=== PATIENT | female | born 1980 | race Caucasian/White ===

== ENCOUNTER 2017-10-12 15:47 | Emergency (ER) | payer BC ==
[2017-10-12] MEDS ORDERED: predniSONE 10 MG Tab PO ONE (15:48)
[2017-10-12] MEDS ORDERED: Ketorolac 60 MG/2 ML SDV IM STA (15:59)
[2017-10-12] MEDS ORDERED: HYDROmorphone 2 MG/ML SDV IM ONE (16:41)
[2017-10-12] MEDS ORDERED: methylPREDNISolone Sodium Succinate 125 MG/2 ML SDV IM ONE (17:31)
--- NOTE | 2017-10-12 17:55 | EDM.PDOC ---
ED HPI GENERAL MEDICAL PROBLEM - General Chief Complaint: Upper Extremity Injury/Pain Stated Complaint: PAIN Time Seen by Provider: 10/12/17 16:30 Source of Information: Reports: Patient, Family History Limitations: Reports: No Limitations - History of Present Illness INITIAL COMMENTS - FREE TEXT/NARRATIVE: 36 y.o.w.f with chronic upper back pain, came to the ed due to sever mid upper back pain. Any kind of movement makes the pain worse. Pt denied direct trauma. She was on steroids for 2 weeks and was taken off those meds 3 days ago after which the pain started again. She has a CT of her upper spine done at [facility] which showed "spurs'. Pt denies a h/o DM. Moving her right shoulder makes her mid upper back pain worse. She was asked to wear an armsling. However, it does not help. Pt is scheduled to see a neurosurgeon on October 17 in [place]. No N/V/ D or any other acute medical issues. Pt is able to ambulate. Currenly, she is on Gabapentin and NSIDS. BP 146/67 Pulse 78 RR 20 Pulse 106 Temp 36.6 Onset Date: 10/10/17 Onset Time: 07:00 Duration: Day(s):, Getting Worse, Intermittent Location: Reports: Back (upper) Quality: Reports: Ache, Dull, Pressure, Same as Previous Episode Severity: Moderate Improves with: Reports: Rest Worsens with: Reports: Movement Context: Reports: Other (chronic, worse today) Associated Symptoms: Reports: No Other Symptoms - Related Data Allergies Allergy/AdvReac Type Severity Reaction Status Date / Time morphine Allergy Vomiting Verified 10/12/17 16:05 Home Meds: Home Meds Diclofenac Sodium [Voltaren] 75 mg PO BID 10/12/17 [History] Gabapentin [Neurontin] 600 mg PO TID 10/12/17 [History] Levothyroxine Sodium [Levothyroxine Sodium] 88 mcg PO DAILY 10/12/17 [History] Social & Family History - Tobacco Use Smoking Status *Q: Never Smoker - Caffeine Use Caffeine Use: Reports: Soda - Recreational Drug Use Recreational Drug Use: No Review of Systems - Review of Systems Review Of Systems: See Below Constitutional: Reports: No Symptoms Eyes: Reports: No Symptoms Ears: Reports: No Symptoms Nose: Reports: No Symptoms Mouth/Throat: Reports: No Symptoms Respiratory: Reports: No Symptoms Cardiovascular: Reports: No Symptoms GI/Abdominal: Reports: No Symptoms Genitourinary: Reports: No Symptoms Musculoskeletal: Reports: Back Pain, Muscle Pain Skin: Reports: No Symptoms Neurological: Reports: No Symptoms Psychiatric: Reports: No Symptoms ED EXAM, GENERAL - Physical Exam Exam: See Below Exam Limited By: Physical Impairment General Appearance: Alert, WD/WN, Obese (morbid) Eye Exam: Bilateral Eye: Normal Inspection Ears: Normal External Exam Ear Exam: Bilateral Ear: Auricle Normal Nose: Normal Inspection Throat/Mouth: Normal Inspection Head: Atraumatic, Normocephalic Neck: Normal Inspection, Supple Respiratory/Chest: No Respiratory Distress, Lungs Clear, Normal Breath Sounds, No Accessory Muscle Use Cardiovascular: Normal Peripheral Pulses, Regular Rate, Rhythm, No Edema, No JVD , No Murmur Peripheral Pulses: 1+: Brachial (R) GI/Abdominal: Normal Bowel Sounds, Soft, Non-Tender, No Organomegaly (Female) Exam: Deferred Rectal (Female) Exam: Deferred Back Exam: Normal Inspection, Decreased Range of Motion (of upper back due to pain), Paraspinal Tenderness Extremities: Normal Inspection, Normal Range of Motion, Non-Tender, No Pedal Edema Neurological: Alert, Oriented, CN II-XII Intact, Normal Cognition, Normal Gait, No Motor/Sensory Deficits Psychiatric: Normal Affect, Normal Mood Skin Exam: Warm, Dry, Intact Lymphatic: No Adenopathy Course - Vital Signs Text/Narrative:: 36 y.o.w.f with chronic upper back pain, came to the ed due to sever mid upper back pain. Any kind of movement makes the pain worse. Pt denied direct trauma. She was on steroids for 2 weeks and was taken off those meds 3 days ago after which the pain started again. She has a CT of her upper spine done at [facility] [place] which showed "spurs'. Pt denies a h/o DM. Moving her right shoulder makes her mid upper back pain worse. She was asked to wear an armsling. However, it does not help. Pt is scheduled to see a neurosurgeon on October 17 in [place]. No N/V/ D or any other acute medical issues. Pt is able to ambulate. Currenly, she is on Gabapentin and NSIDS. BP 146/67 Pulse 78 RR 20 Pulse 106 Temp 36.6 PE: Morbid obese w f with severe mid upper back pain, paravertebral. Imaging: CT sine was done at an out side Medical facility, recently Labs: Not indicated Impression: Chronic upper back pain with acute exacerbation Tx: Toradol, Dilaudid and Solumedrol. ICE Reexam: improved, pt was able to tolerate the pain now Plan: D/C with instructions Last Recorded V/S: Last Vital Signs Temp 36.7 C 10/12/17 16:30 Pulse 87 10/12/17 17:45 Resp 18 10/12/17 17:45 BP 123/78 10/12/17 17:45 Pulse Ox 98 10/12/17 17:45 - Orders/Labs/Meds Orders: Active Orders 24 hr Category Date Time Status Cooling Warming Measures [RC] ASDIRECTED Care 10/12/17 16:41 Active Ice Therapy [OM.PC] Routine Oth 10/12/17 16:41 Ordered Meds: Medications Discontinued Medications Generic Name Dose Route Start Last Admin Trade Name Freq PRN Reason Stop Dose Admin Hydromorphone HCl 1 mg 10/12/17 16:41 10/12/17 16:52 Dilaudid IM 10/12/17 16:42 1 mg ONETIME ONE Administration Ketorolac Tromethamine 60 mg 10/12/17 15:59 10/12/17 16:13 Toradol IM 10/12/17 16:00 60 mg ONETIME STA Administration Methylprednisolone Sodium Succinate 125 mg 10/12/17 17:31 10/12/17 17:40 Solu-Medrol IM 10/12/17 17:32 125 mg ONETIME ONE Administration Departure - Departure Time of Disposition: 17:52 Disposition: Home, Self-Care 01 Condition: Good Clinical Impression: Back pain Qualifiers: Back pain location: thoracic back pain Chronicity: unspecified Back pain laterality: bilateral Qualified Code(s): M54.6 - Pain in thoracic spine - Discharge Information Instructions: Degenerative Disk Disease, Prednisone tablets Referrals: Whitney Guevara NP [Primary Care Provider] - Forms: ED Department Discharge Additional Instructions: Please cont your meds, please take the Medrol dose pack as recommended, please f/u with your neurosurgeon as scheduled, please come back if your symptoms get worse acutely - My Orders Last 24 Hours: My Active Orders 10/12/17 16:41 Cooling Warming Measures [RC] ASDIRECTED Ice Therapy [OM.PC] Routine - Assessment/Plan Last 24 Hours: My Active Orders 10/12/17 16:41 Cooling Warming Measures [RC] ASDIRECTED Ice Therapy [OM.PC] Routine
== END 2017-10-12 18:06 | disposition home or self-care (01) ==
LOC: FB.ED 15:47
DX: G89.29 Other chronic pain (principal); M54.6 Pain in thoracic spine; E66.01 Morbid (severe) obesity due to excess calories; Z68.38 Body mass index [BMI] 38.0-38.9, adult; Z79.899 Other long term (current) drug therapy; Z88.5 Allergy status to narcotic agent
CPT/HCPCS: 96372; 99282; A9270-GY; J1170; J1885; J2930